=== PATIENT | male | born 1960 | race Caucasian/White ===

== ENCOUNTER 2017-04-16 05:25 | Inpatient (IN) | payer MEDICAID ==
[~2017-04-16] VITALS: Ht 157.5 cm; Wt 68.0 kg
--- NOTE | 2017-04-16 05:25 | NUR ---
Patient was BIBA and taken to bed 06.
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
[2017-04-16 05:35] VITALS: BP 133/97
[2017-04-16] MEDS ORDERED: NEOMYCIN/POLYMYXIN/BACITRACIN 0.9 GM/1 PKT TP ONE (06:00)
[2017-04-16 06:10] LABS: BASOPHILS # (AUTO) 0.3 K/uL (0.00-0.22); BASOPHILS % (AUTO) 3.9 % (0.0-2.0); EOSINOPHILS # (AUTO) 0.2 K/uL (0-0.4); EOSINOPHILS % (AUTO) 2.6 % (0.0-4.0); HEMATOCRIT 46.4 % (36-52); LYMPHOCYTES # (AUTO) 1.6 K/uL (2.0-11.5); LYMPHOCYTES % (AUTO) 20.8 % (20.5-51.1); MEAN CORPUSCULAR HEMOGLOBIN 28 pg (27-31); MEAN CORPUSCULAR HGB CONC 32 g/dL (33-37); MEAN CORPUSCULAR VOLUME 86 fL (80-94); MONOCYTES # (AUTO) 0.7 K/uL (0.8-1.0); MONOCYTES % (AUTO) 9.7 % (1.7-9.3); NEUTROPHILS # (AUTO) 4.7 K/uL (1.8-7.7); PLATELET COUNT (AUTO) 228 K/uL (140-450); RED BLOOD CELL COUNT(AUTO) 5.38 MIL/uL (4.20-6.10); RED CELL DISTRIBUTION WIDTH 15.2 % (11.6-13.7); WHITE BLOOD COUNT (AUTO) 7.5 K/uL (4.8-10.8)
[2017-04-16 06:21] LABS: ANION GAP 10.1 (8-16); CARBON DIOXIDE 29.5 mmol/L (21-32); CHLORIDE 104 mmol/L (98-107); CREATININE 1.1 mg/dL (0.7-1.3); GFR ARICAN-AMERICAN 89 mL/min (>90); GLUCOSE 87 mg/dL (74-106); POTASSIUM 3.6 mmol/L (3.5-5.1); SODIUM SERUM 140 mmol/L (136-145); UREA NITROGEN, BLOOD 19 mg/dL (7-18)
[2017-04-16 06:29] LABS: ACETAMINOPHEN < 0.5 ug/ml (10-30); ALBUMIN 3.6 g/dL (3.4-5.0); ASPARTATE AMINOTRANSFERASE 15 U/L (15-37); SALICYLATE < 2.8 mg/dL (2.8-20.0); TOTAL BILIRUBIN 0.6 mg/dL (0.0-1.0)
--- NOTE | 2017-04-16 07:15 | NUR ---
Pt report given to Sadaf WEINBERG. Transfer of care at this time.
--- NOTE | 2017-04-16 07:15 | NUR ---
Receive report from SULTANA Franco. Pt laying in gurney with eyes closed. RR are even and unlabored. Nad. Sitter by bedside. Sucidical precautions in place.
--- NOTE | 2017-04-16 07:45 | NUR ---
Patient being evaluated by DR MABRY at bedside.
--- NOTE | 2017-04-16 08:15 | NUR ---
Pt laying in gurney with eyes closed. RR are even and unlabored. Nad. Sitter by bedside. Sucidical precautions in place.
--- NOTE | 2017-04-16 09:15 | NUR ---
Pt laying in gurney with eyes closed. RR are even and unlabored. Nad. Sitter by bedside. Sucidical precautions in place.
[2017-04-16 09:46] LABS: BARBITURATE, URINE NEG. ng/ml (NEG <=200); BENZODIAZEPINE, URINE NEG. ng/mL (NEG <=200); CANNABINOID, URINE NEG. ng/mL (NEG <=50); COCAINE, URINE NEG. ng/mL (NEG <=300); OPIATE, URINE NEG. ng/mL (NEG <=2000); PHENCYCLIDINE SCREEN,URINE NEG. ng/mL (NEG <=25)
--- NOTE | 2017-04-16 10:15 | NUR ---
Pt laying in gurney with eyes closed. RR are even and unlabored. Nad. Sitter by bedside. Sucidical precautions in place.
[2017-04-16] MEDS ORDERED: ONDANSETRON 4 MG/2 ML VIAL IVP PRN (11:15)
[2017-04-16] MEDS ORDERED: ACETAMINOPHEN 325 MG TAB PO PRN (11:15)
[2017-04-16] MEDS ORDERED: HYDROcodone/APAP 5/325 MG 1 TAB TAB PO PRN (11:15)
--- NOTE | 2017-04-16 11:15 | NUR ---
Pt laying in gurney with eyes closed. RR are even and unlabored. Nad. Sitter by bedside. Sucidical precautions in place.
--- NOTE | 2017-04-16 12:00 | NUR ---
pt left er to floor; pt with no complaints. nad.
--- NOTE | 2017-04-16 12:11 | NUR ---
Patient will be admitted to care of [facility]. Admited to Med Surg. Will go to room 124A. Belongings list completed. Bedside report to Kierra ALCANTARA.
[2017-04-16 12:15] VITALS: BP 122/76
--- NOTE | 2017-04-16 12:15 | NUR ---
RECEIVED PATIENT FROM ER. ASSISTED BY ER NURSE BY JOHN. ALERT, ORIENT X4. NO SOB NOTED. PATIENT COOPERATED. DENIES ANY SUICIDAL IDEATION AT THIS TIME. SAFETY PRECAUTIONS IN PLACE. PATIENT ON 5150 ORDERED. PATIENT DENIES SMOKING. Patient's Plan of Care was discussed and reviewed with MEDICAL TRANSCRIPTION: SAHARA MORELOS.
--- NOTE | 2017-04-16 12:58 | NUR ---
DR. SNELL, DONOVAN CAME, REVIEWED PT. CHART, SEEN PT., AND SPOKE TO CLINICAL TRIAL DATA MANAGER -IAN REGARDING PT. TRANSFER TO [facility]. INFORMED CHARGE NURSE SONYA SEGOVIA.
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
--- NOTE | 2017-04-16 14:36 | NUR ---
CALLED [facility] SPOKE TO ANITHA (INTAKE) AND PT. REPORT GIVEN REGARDING TRANSFER. INFORMED CHARGE NURSE AND MARKETING PRODUCER -LETICIA.
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
--- NOTE | 2017-04-16 15:27 | NUR ---
CM NOTE PATIENT ACCEPTED TO [facility]. TO BE PICKED UP VIA GURNEY BY [facility]. ETA: 1630. ACCEPTING MD: DR. NEO LO. SAHARA ALCANTARA MADE AWARE.
[2017-04-16 16:00] VITALS: BP 124/83
--- NOTE | 2017-04-16 16:12 | NUR ---
USED Eyewitness Surveillance WITH CLAIM BENEFIT SPECIALIST NUMBER #[id number], EXPLAINED PT. ABOUT TRANSFER TO [facility] IN [place]. PER MD ORDER. PT. VERBALIZED UNDERSTANDING. ASKED FOR ANY QUESTION OR CONCERN REGARDING TRANSFER. NO QUESTION OR CONCERN RECEIVED FROM PT.. ALSO ASKED PT. FOR ANY FAMILY MEMBERS CONTACT NUMBER TO INFORM THEM OF PT. TRANSFER, PT. STATES "I DON'T HAVE FAMILY OR PHONE NUMBER TO GIVE." INFORMED CHARGE NURSE SONYA SEGOVIA.
--- NOTE | 2017-04-16 16:40 | NUR ---
D/C VIA GURNEY WITH [facility] MEDICAL TRANSPORTER. AWAKE, ALERT, AND ORIENTED X4. SPEECH CLEAR. NO C/O PAIN. NO SOB, NOTED. CALM, QUIET, AND COOPERATIVE. NO AGGRESSIVE BEHAVIOR OBSERVED. IN STABLE CONDITION.
== END 2017-04-16 16:40 | DRG 384 ==
LOC: MED 05:25 → MTU 11:18
PROVIDERS: ADMIT Internal Medicine Cardiovascular Disease; ATTEND Internal Medicine Cardiovascular Disease
DX: S60.811A Abrasion of right wrist, initial encounter (principal); R45.851 Suicidal ideations; S60.812A Abrasion of left wrist, initial encounter; F15.10 Other stimulant abuse, uncomplicated; Z72.0 Tobacco use; N18.9 Chronic kidney disease, unspecified; R79.89 Other specified abnormal findings of blood chemistry; X78.0XXA Intentional self-harm by sharp glass, initial encounter; Y93.89 Activity, other specified; Y92.89 Other specified places as the place of occurrence of the external cause; Y99.8 Other external cause status
CPT/HCPCS: 36415; 80053; 80305; 85025; 87081; 93005; 99285; G0480; G0482